=== PATIENT | female | born 1990 | race Caucasian/White ===

== ENCOUNTER 2016-11-12 09:21 | Emergency (ER) | payer MEDICAID ==
[2016-06-03 08:38] VITALS: BMI 28.4
[~2016-11-12 09:21] MED LIST: ATIVAN1 MG PO; AUGMENTIN ES-6125 ML PO; BENTYL10 MG PO; CELEXA20 MG PO; CELEXA40 MG PO; COMPAZINE10 MG PO; GEODON60 MG PO; HYDROCODONE-APA1 TAB PO; INVEGA6 MG/BLIST PO; KEPPRA1000 MG PO; KEPPRA500 MG PO; KLONOPIN1 MG PO; PERCOCET 10/3251 TA1 PO; PHENERGAN DM SYR5 ML PO; PHENERGAN25 M1 PO; PROVENTIL HFA6.7 GM INH; SEROQUEL200 MG PO; SYNTHROID100 MCG PO; SYNTHROID150 MCG PO; SYNTHROID75 MCG PO; TEMAZEPAM30 MG PO; TYLENOL PM1 TAB PO; ZOFRAN8 MG PO
[2016-12-10] MEDS ORDERED: TENEX1 MG PO (13:30)
[2016-12-10] MEDS ORDERED: METOPROLOL TART25 MG PO (13:31)
[2016-12-10] MEDS ORDERED: BUTALB-APAP-CA1 EACH PO (13:31)
== END 2016-11-12 10:39 | disposition home or self-care (01) ==
LOC: D.ER 09:21
DX: G43.909 Migraine, unspecified, not intractable, without status migrainosus (principal); F32.9 Major depressive disorder, single episode, unspecified; J45.909 Unspecified asthma, uncomplicated; E03.9 Hypothyroidism, unspecified; F17.200 Nicotine dependence, unspecified, uncomplicated

== ENCOUNTER → 2016-11-23 14:24 | Outpatient (CLI) | payer MEDICAID ==
[2016-06-03 08:38] VITALS: BMI 28.4
[~2016-11-23 14:24] MED LIST changes: +BUTALB-APAP-CA1 EACH PO; +METOPROLOL TART25 MG PO; +TENEX1 MG PO
== END | disposition home or self-care (01) ==
LOC: D.MRI 14:24
DX: M75.42 Impingement syndrome of left shoulder (principal)

== ENCOUNTER 2016-12-13 09:07 | Day surgery (SDC) | payer MEDICAID ==
[~2016-12-13] VITALS: Ht 157.5 cm; Wt 68.2 kg
[2016-12-13 10:38] VITALS: Ht 157.5 cm; Wt 68.2 kg
[2016-12-13 10:52] LABS: HEMATOCRIT 44.7 % (36.0-48.0); HEMOGLOBIN 15.4 g/dL (12-16); MCHC 34.5 g/dL (31.0-37.0); MCV 92.9 fL (80.0-100.0); MEAN PLATELET VOLUME 10.4 fL (7.4-10.4); RBC 4.81 10x6/uL (4.00-5.40); WBC 6.6 10x3/uL (4.8-10.8)
[2016-12-13 11:21] LABS: HCG URINE NEGATIVE (NEGATIVE)
[2016-12-13] MEDS ORDERED: PERCOCET 10/3251 TA1 PO (12:28)
--- NOTE | 2016-12-13 12:48 | NUR ---
PT HAD ISB LT LEFT SIDE AND REPORTS SOME TINGLING TO LEFT HAND. EDUCATION ABOUT BLOCKS DONE.
--- NOTE | 2016-12-13 14:17 | NUR ---
DISCHARGE INSTRUCTIONS REVIEWED WITH PATIENT. DISCHARGED HOME VIA WHEELCHAIR TO PRIVATE VEHICLE WITH FRIEND
--- NOTE | 2016-12-15 09:22 | OP ---
PATIENT NAME: IAN STYLES MEDICAL RECORD: [id number] :90 LOCATION:D.OPS ADMISSION DATE: SURGEON: ROBERT ANDREW MD DATE OF OPERATION: 12/13/2016 PREOPERATIVE DIAGNOSIS: SLAP lesion of the left shoulder with biceps tendinitis, impingement syndrome and acromioclavicular arthritis. POSTOPERATIVE DIAGNOSES: SLAP lesion of the left shoulder with biceps tendinitis, impingement syndrome and acromioclavicular arthritis. PROCEDURES: 1. Arthroscopic distal clavicle excision -- 1 cm done through separate incision. 2. Arthroscopic subacromial decompression, left shoulder. SURGEON: Robert Andrew MD ANESTHESIA: General. INTRAOPERATIVE COMPLICATIONS: None. SUMMARY OF PATHOLOGIC FINDINGS: While the patient did have biceps tendinitis, no SLAP lesion was present. The biceps tendinitis I thought was more amenable to straightforward decompression than tenodesis. There was no rotator cuff tear. OPERATIVE SUMMARY IN DETAIL: After obtaining the appropriate preoperative orthopedic surgery consent as well as anesthetic consultation, evaluation and clearance, the patient was brought to the operating room and placed on the operating table in supine position. After general laryngeal mask was administered, the patient was placed in a right lateral decubitus position. All pressure points were well padded to include down leg peroneal pad as well as axillary roll. She was held firmly to the operating table using the vacuum pack suction system. Left upper extremity and shoulder were then prepped and draped in a routine sterile fashion. The arm was held in the Arthrex traction boom at 30 degrees of forward flexion, 30 degrees of abduction with 10 pounds of traction laterally. Arthroscopy was established in the glenohumeral joint from posterior portal. Anterior portal was established in the anterior safe interval. Diagnostic arthroscopy revealed the above-mentioned findings. Attention was turned to the subacromial space. While on the subacromial space, excoriation of the coracoacromial ligament was noted as well as some excoriation of the superficial aspect of the supraspinatus tendon. [place] tissue ablation system was utilized to denude the undersurface of the acromion of all soft tissue elements. A 5-0 barrel evgeny was used to perform acromioplasty at the level of acromioclavicular joint. Distal clavicle was excised through a separate arthroscopic anterior portal for 1 cm. Having completed this, the residual of the shoulder bursa was taken down anteriorly, laterally and posteriorly. Having completed this, arthroscopy portals were closed in routine interrupted fashion using 4-0 Prolene. Sterile dressings were applied. The patient was awakened and taken to recovery room in stable condition. All final needle and sponge counts were correct. TRANSINT:[id number] Voice Confirmation ID: [id number] DOCUMENT ID: [id number] OPERATIVE REPORT [id number] IAN STYLES MD, ROBERT MIRELES at 0922 CC: [id number] DICTATION DATE: 12/13/16 1352 EMT: 12/13/16 1454 [facility] 12/13/[address] [address]
== END 2016-12-13 14:17 | disposition home or self-care (01) ==
LOC: D.OPS 09:07 → D.PAN 12:00 → D.OPS 14:17
PROVIDERS: Anesthesiology; Orthopaedic Surgery
DX: S43.432A Superior glenoid labrum lesion of left shoulder, initial encounter (principal); M75.22 Bicipital tendinitis, left shoulder; M75.42 Impingement syndrome of left shoulder; M13.812 Other specified arthritis, left shoulder

== ENCOUNTER 2017-02-17 16:15 | Emergency (ER) | payer MEDICAID ==
[2017-02-17 18:22] LABS: BASOPHILS 0.1 % (0-2); EOSINOPHILS 1.9 % (0-7); HEMATOCRIT 46.7 % (36.0-48.0); IMMATURE GRANULOCYTES 0.2 % (0-5); LYMPHOCYTES 25.7 % (15-50); MCH 31.7 pg (26.0-34.0); MCHC 34.3 g/dL (31.0-37.0); MCV 92.7 fL (80.0-100.0); MEAN PLATELET VOLUME 11.8 fL (7.4-10.4); NEUTROPHILS 68.1 % (40-80); PLATELET COUNT 102 10x3/uL (130-400); RBC 5.04 10x6/uL (4.00-5.40); RDW 12.1 % (11.5-14.5); WBC 8.3 10x3/uL (4.8-10.8)
[2017-02-17 18:40] LABS: ALBUMIN 4.4 g/dL (3.4-5.0); ALKALINE PHOSPHATASE 121 U/L (46-116); ALT (SGPT) 44 U/L (10-68); CALC OSMOLALITY 279 mosm/kg (275-300); CARBON DIOXIDE 24.9 mmol/L (21.0-32.0); CHLORIDE - SERUM 102 mmol/L (98-107); CREATININE - SERUM 0.7 mg/dL (0.6-1.3); GLUCOSE 121 mg/dL (74-106); POTASSIUM - SERUM 3.6 mmol/L (3.5-5.1); PROTEIN - SERUM 7.2 g/dL (6.4-8.2); SODIUM 142 mmol/L (136-145); TROPONIN-I < 0.017 ng/mL (0.000-0.060); UREA NITROGEN 1 mg/dL (7-18); eGFR NON AFRICAN AMERICAN > 90 mL/min (90-120)
[2017-02-17 18:51] LABS: CKMB 0.5 U/L (0.0-3.6); CREATINE KINASE 77 UL (21-215)
[2017-02-17 20:33] LABS: APPEARANCE HAZY (CLEAR); BILIRUBIN NEGATIVE (NEGATIVE); COLOR STRAW (YELLOW); GLUCOSE NEGATIVE (NEGATIVE); KETONE NEGATIVE (NEGATIVE); LEUKOCYTE ESTERASE NEGATIVE (NEGATIVE); NITRITE NEGATIVE (NEGATIVE); PROTEIN TRACE mg/dL (NEGATIVE); SPECIFIC GRAVITY 1.005 (1.005-1.020); UROBILINOGEN NORMAL (NORMAL)
[2017-02-17 20:34] LABS: BACTERIA MODERATE /hpf (NONE SEEN); EPITHELIAL CELLS 0-5 /hpf (0-5); RED CELLS - URINE 0-5 /hpf (0-5); WHITE CELLS - URINE 0-5 /hpf (0-5)
== END 2017-02-17 21:05 | disposition home or self-care (01) ==
LOC: D.ER 16:15
PROVIDERS: Emergency Medicine; Nurse Practitioner Family
DX: R07.89 Other chest pain (principal); J06.9 Acute upper respiratory infection, unspecified; F32.9 Major depressive disorder, single episode, unspecified; J45.909 Unspecified asthma, uncomplicated; E03.9 Hypothyroidism, unspecified; F17.200 Nicotine dependence, unspecified, uncomplicated

== ENCOUNTER 2017-05-27 14:50 | Emergency (ER) | payer MEDICAID ==
[2016-12-13 10:38] VITALS: BMI 27.5
== END 2017-05-27 17:50 | disposition home or self-care (01) ==
LOC: D.ER 14:50
DX: S80.02XA Contusion of left knee, initial encounter (principal); X58.XXXA Exposure to other specified factors, initial encounter; Y93.89 Activity, other specified; Y92.89 Other specified places as the place of occurrence of the external cause; S83.92XA Sprain of unspecified site of left knee, initial encounter; F32.9 Major depressive disorder, single episode, unspecified; J45.909 Unspecified asthma, uncomplicated; E03.9 Hypothyroidism, unspecified; F17.200 Nicotine dependence, unspecified, uncomplicated; M79.662 Pain in left lower leg

== ENCOUNTER 2017-07-02 21:31 | Emergency (ER) | payer MEDICAID ==
[2016-12-13 10:38] VITALS: BMI 27.5
== END 2017-07-02 23:30 | disposition home or self-care (01) ==
LOC: D.ER 21:31
DX: S43.102A Unspecified dislocation of left acromioclavicular joint, initial encounter (principal); W22.8XXA Striking against or struck by other objects, initial encounter; Y93.89 Activity, other specified; Y92.830 Public park as the place of occurrence of the external cause; F17.200 Nicotine dependence, unspecified, uncomplicated

== ENCOUNTER → 2017-07-06 08:27 | Outpatient (CLI) | payer MEDICAID ==
[2016-12-13 10:38] VITALS: BMI 27.5
== END | disposition home or self-care (01) ==
LOC: D.MRI 06-28 10:30
DX: M25.562 Pain in left knee (principal)

== ENCOUNTER 2019-08-30 12:14 | Emergency (ER) | payer MEDICAID ==
[~2019-08-30] VITALS: Ht 157.5 cm; Wt 77.3 kg
[2019-08-30 12:27] VITALS: Ht 157.5 cm; Wt 77.3 kg
[2019-08-30] MEDS ORDERED: ABILIFY MAINTE400 MG IM (12:31)
[2019-08-30] MEDS ORDERED: IMITREX100 MG PO (12:31)
[2019-08-30] MEDS ORDERED: ELAVIL25 MG PO (12:32)
[2019-08-30] MEDS ORDERED: AMBIEN10 MG PO (12:32)
[2019-08-30] MEDS ORDERED: ZOFRAN4 MG PO (12:32)
[2019-08-30] MEDS ORDERED: NEURONTIN600 MG PO (12:32)
[2019-08-30] MEDS ORDERED: HYDROCODON-ACE1 EA10 PO (12:33)
[2019-08-30] MEDS ORDERED: LINZESS72 MCG PO (12:33)
[2019-08-30] MEDS ORDERED: CYCLOBENZAPRINE10 MG PO (12:34)
--- NOTE | 2019-08-30 14:48 | NUR ---
DR. CARBAJAL NOTIFIED AND REVIEWED PT'S BEHAVIOR AND ASSESSMENT RESULTS AT THIS TIME. PT IS A LOW RISK PER DR. CARBAJAL. DR. CARBAJAL STATED TO GIVE RESOURCES TO PT AT TIME OF DISCHARGE. NO FURTHER ORDERS AT THIS TIME. RESOURCES REVIEWED WITH PT AND SHE VERBALIZED UNDERSTANDING.
[2019-08-30] MEDS ORDERED: HYDROCODON-ACE1 EAC7 PO (16:02)
[2019-08-30 16:17] VITALS: BP 111/72
[2019-09-25] MEDS ORDERED: TYLENOL W/CODEI1 TAB PO (14:37)
[2019-09-25] MEDS ORDERED: HYDROCODON-ACE1 EA10 PO (18:43)
[2019-09-25] MEDS ORDERED: PHENERGAN25 M1 PO (18:43)
== END 2019-08-30 16:14 | disposition home or self-care (01) ==
LOC: D.ER 12:14
DX: S49.92XA Unspecified injury of left shoulder and upper arm, initial encounter (principal); X58.XXXA Exposure to other specified factors, initial encounter

== ENCOUNTER → 2019-09-10 13:23 | Outpatient (CLI) | payer MEDICAID ==
[2019-08-30 12:27] VITALS: BMI 31.1
[~2019-09-10 13:23] MED LIST changes: +ABILIFY MAINTE400 MG IM; +AMBIEN10 MG PO; +CYCLOBENZAPRINE10 MG PO; +ELAVIL25 MG PO; +HYDROCODON-ACE1 EA10 PO; +HYDROCODON-ACE1 EAC7 PO; +IMITREX100 MG PO; +LINZESS72 MCG PO; +NEURONTIN600 MG PO; +TYLENOL W/CODEI1 TAB PO; +ZOFRAN4 MG PO
--- NOTE | 2019-09-10 14:14 | NUR ---
TIME OUT PERFORMED BY JENNY BUENO, RTR & DR. HUSSEIN @ 1400. PATIENT, , & PROCEDURE VERIFIED
== END | disposition home or self-care (01) ==
LOC: D.RAD 13:23 → D.CT 15:00
PROVIDERS: ATTEND Orthopaedic Surgery
DX: S43.432A Superior glenoid labrum lesion of left shoulder, initial encounter (principal)

== ENCOUNTER → 2019-09-25 | Emergency (ER) | payer MEDICAID ==
[~2019-09-25] VITALS: Ht 157.5 cm; Wt 79.1 kg
[2019-09-25 14:34] VITALS: BP 129/84; Ht 157.5 cm; Wt 79.1 kg
== END | disposition home or self-care (01) ==
LOC: D.ER 14:21
DX: S46.212A Strain of muscle, fascia and tendon of other parts of biceps, left arm, initial encounter (principal); R11.2 Nausea with vomiting, unspecified; E07.9 Disorder of thyroid, unspecified

== ENCOUNTER 2019-10-11 07:25 | Day surgery (SDC) | payer MEDICAID ==
[2019-10-10 15:53] LABS: HEMATOCRIT 48.6 % (36.0-48.0); HEMOGLOBIN 16.8 g/dL (12-16); MCH 33.3 pg (26.0-34.0); MCHC 34.6 g/dL (31.0-37.0); MCV 96.4 fL (80.0-100.0); MEAN PLATELET VOLUME 9.5 fL (7.4-10.4); RBC 5.04 10x6/uL (4.00-5.40); RDW 13.1 % (11.5-14.5); WBC 9.7 10x3/uL (4.8-10.8)
[~2019-10-11] VITALS: Ht 157.5 cm; Wt 78.9 kg
[~2019-10-11 07:25] MED LIST changes: +HYDROXYZINE HCL50 MG PO; +MELATONIN10 M1 PO
[2019-10-11 08:40] VITALS: BP 127/91; Ht 157.5 cm; Wt 78.9 kg
--- NOTE | 2019-10-11 08:56 | NUR ---
DR. SYKES NOTIFIED AND REVIEWED PT'S BEHAVIOR AND ASSESSMENT RESULTS. PT IS A LOW RISK PER DR. CARBAJAL. DR. CARBAJAL STATED TO GIVE RESOURCES TO PT AT TIME OF DISCHARGE. NO FURTHER ORDERS AT THIS TIME. RESOURCRES REVIEWED WITH PT AND SHE VERBALIZIED UNDERSTANDING.
[2019-10-11 09:04] LABS: HCG URINE NEGATIVE (NEGATIVE)
[2019-10-11] MEDS ORDERED: HYDROCODON-ACE1 EA10 PO (13:06)
--- NOTE | 2019-10-12 06:22 | OP ---
PATIENT NAME: IAN STYLES MEDICAL RECORD: [id number] :90 LOCATION:[facility] ADMISSION DATE: SURGEON: ROBERT ANDREW MD DATE OF OPERATION: 10/11/2019 PREOPERATIVE DIAGNOSES: 1. Severe biceps tendinitis, left shoulder. 2. Recurrent impingement syndrome, left shoulder. 3. Acromioclavicular arthritis, left shoulder. POSTOPERATIVE DIAGNOSES: 1. Severe biceps tendinitis, left shoulder. 2. Recurrent impingement syndrome, left shoulder. 3. Acromioclavicular arthritis, left shoulder. PROCEDURES: 1. Arthroscopic biceps tenotomy, left shoulder. 2. Arthroscopic distal clavicle excision done through separate incision -- 1 cm. 3. Arthroscopic subacromial decompression with acromioplasty and bursectomy. SURGEON: Robert Andrew MD ANESTHESIA: General. INTRAOPERATIVE COMPLICATIONS: None. SUMMARY OF PATHOLOGIC FINDINGS: Primarily, the patient not only had a recurrence of mild downward sloping acromion, but she also had a residual acromioclavicular arthritis and lastly most importantly, she had severe biceps tendinitis, which obviated the need for tenotomy rather than tenodesis. OPERATIVE SUMMARY IN DETAIL: After obtaining the appropriate preoperative orthopedic surgery consent as well as anesthetic consultation , evaluation and clearance, the patient was brought to the operating room and placed on the operating table in a supine position. After adequate general laryngeal mask airway was administered, the patient was placed in the right lateral decubitus position. All pressure points were well padded to include down leg peroneal pad as well as axillary roll. The patient was held firmly to the operating table using the vacuum pack suction system. Right upper extremity and shoulder were then prepped and draped in routine sterile fashion. The arm was held in the Arthrex traction boom at 30 degrees of forward flexion, 30 degrees of abduction, 10 pounds of traction laterally. Arthroscopy was established in the glenohumeral joint from the posterior portal. Anterior portal was established in the anterior safe interval. Diagnostic arthroscopy revealed the above findings. [place] tissue ablation system was utilized to release the biceps tendon from the bicipital labral junction. Attention was then turned to the subacromial space with the accessory lateral portal. The [place] tissue ablation system was used to denude the undersurface of the acromion of all soft tissue elements and release the coracoacromial ligament. A 5-0 barrel bur was used to perform acromioplasty at the level of acromioclavicular joint and through a separate anterior portal under direct arthroscopic visualization. A bur was utilized to completely take down the acromioclavicular joint for 1 cm. Further bursitis was taken down anteriorly, posteriorly, laterally, and superiorly. Having completed this, arthroscopy portals were closed in routine interrupted OPERATIVE REPORT [id number] IAN STYLES fashion using 4-0 Prolene. Sterile dressings were applied. The patient was awakened and taken to the recovery room in stable condition. All final needle and sponge counts were correct. TRANSINT:[id number] Voice Confirmation ID: [id number] DOCUMENT ID: [id number] KAMRAN ROBERTSON, ROBERT MIRELES at 0622 CC: [id number] DICTATION DATE: 10/11/19 1311 DRIVER LICENSE TECHNICIAN: 10/11/19 1559 [facility] 10/11/19 [id number] [place] [address]
== END 2019-10-11 14:55 | disposition home or self-care (01) ==
LOC: D.OPS 07:25 → D.PAN 10:15 → D.OPS 10:15 → D.PAN 11:25 → D.OPS 11:25 → D.PAN 12:00 → D.OPS 13:30 → D.PAN 13:30 → D.OPS 14:55
PROVIDERS: Anesthesiology; ATTEND Orthopaedic Surgery
DX: M75.22 Bicipital tendinitis, left shoulder (principal); M25.812 Other specified joint disorders, left shoulder; M13.812 Other specified arthritis, left shoulder

== ENCOUNTER 2020-02-05 12:28 | Emergency (ER) | payer MEDICAID ==
[~2020-02-05] VITALS: Ht 157.5 cm; Wt 72.7 kg
[2020-02-05 12:36] VITALS: Ht 157.5 cm; Wt 72.7 kg
[2020-02-05 13:21] LABS: BASOPHILS 0.3 % (0-2); EOSINOPHILS 3.1 % (0-7); HEMATOCRIT 44.7 % (36.0-48.0); HEMOGLOBIN 14.2 g/dL (12-16); IMMATURE GRANULOCYTES 0.3 % (0-5); LYMPHOCYTES 27.7 % (15-50); MCH 31.2 pg (26.0-34.0); MCHC 31.8 g/dL (31.0-37.0); MCV 98.2 fL (80.0-100.0); MEAN PLATELET VOLUME 9.9 fL (7.4-10.4); MONOCYTES 5.2 % (2-11); NEUTROPHILS 63.4 % (40-80); PLATELET COUNT 283 10x3/uL (130-400); RBC 4.55 10x6/uL (4.00-5.40); RDW 13.1 % (11.5-14.5); WBC 7.7 10x3/uL (4.8-10.8)
[2020-02-05 13:27] LABS: APTT 30.7 SECONDS (22.8-39.4); INR 0.99 (0.85-1.17); PROTIME 13.1 SECONDS (11.6-15.0)
[2020-02-05 13:29] LABS: CALC OSMOLALITY 269 mosm/kg (275-300); CALCIUM 9.2 mg/dL (8.5-10.1); CARBON DIOXIDE 27.8 mmol/L (21.0-32.0); CHLORIDE - SERUM 102 mmol/L (98-107); CREATININE - SERUM 0.9 mg/dL (0.6-1.3); GLUCOSE 87 mg/dL (74-106); POTASSIUM - SERUM 3.9 mmol/L (3.5-5.1); SODIUM 137 mmol/L (136-145); UREA NITROGEN 5 mg/dL (7-18); eGFR NON AFRICAN AMERICAN 78 mL/min (90-120)
[2020-02-05 13:46] LABS: ALBUMIN 4.1 g/dL (3.4-5.0); ALKALINE PHOSPHATASE 113 U/L (30-120); ALT (SGPT) 26 U/L (10-68); BILIRUBIN - TOTAL 0.38 mg/dL (0.2-1.3); CKMB 0.2 U/L (0.0-3.6); CREATINE KINASE 185 UL (21-215); PROTEIN - SERUM 7.8 g/dL (6.4-8.2); THYROID STIMULATING HORMONE 5.45 uIU/mL (0.36-3.74); TROPONIN-I < 0.017 ng/mL (0.000-0.060)
[2020-02-05 15:21] VITALS: BP 109/70
== END 2020-02-05 14:50 | disposition home or self-care (01) ==
LOC: D.ER 12:28
PROVIDERS: Family Medicine
DX: E03.9 Hypothyroidism, unspecified (principal); J45.909 Unspecified asthma, uncomplicated; Z72.0 Tobacco use; R51 Headache; R42 Dizziness and giddiness

== ENCOUNTER 2020-03-12 19:09 | Emergency (ER) | payer MEDICAID ==
[~2020-03-12] VITALS: Ht 157.5 cm; Wt 79.5 kg
[2020-03-12 19:22] VITALS: Ht 157.5 cm; Wt 79.5 kg
[2020-03-12] MEDS ORDERED: TALWIN NX1 TAB PO (20:08)
[2020-03-12] MEDS ORDERED: STERAPRED DS 1010 MG PO (20:08)
[2020-03-12] MEDS ORDERED: BACLOFEN20 M1 PO (20:23)
[2020-03-12 20:56] VITALS: BP 122/84
== END 2020-03-12 20:56 | disposition home or self-care (01) ==
LOC: D.ER 19:09
DX: M25.512 Pain in left shoulder (principal); M25.50 Pain in unspecified joint; M79.10 Myalgia, unspecified site; E07.9 Disorder of thyroid, unspecified; J45.909 Unspecified asthma, uncomplicated; Z72.0 Tobacco use

== ENCOUNTER → 2020-04-04 10:02 | Outpatient (CLI) | payer MEDICAID ==
[2020-03-12 19:22] VITALS: BMI 32.1
[~2020-04-04 10:02] MED LIST changes: +BACLOFEN20 M1 PO; +STERAPRED DS 1010 MG PO; +TALWIN NX1 TAB PO
== END | disposition home or self-care (01) ==
LOC: D.CT 10:00 → D.RAD 10:02
PROVIDERS: ATTEND Orthopaedic Surgery
DX: M67.812 Other specified disorders of synovium, left shoulder (principal)

== ENCOUNTER 2020-04-30 09:59 | Emergency (ER) | payer MEDICAID ==
[~2020-04-30] VITALS: Ht 157.5 cm; Wt 79.5 kg
[2020-04-30 10:07] VITALS: Ht 157.5 cm; Wt 79.5 kg
[2020-04-30] MEDS ORDERED: TOVIAZ4 MG PO (10:11)
[2020-04-30] MEDS ORDERED: TENORMIN25 MG PO (10:12)
[2020-04-30] MEDS ORDERED: TOPAMAX50 MG PO (10:12)
[2020-04-30] MEDS ORDERED: KLONOPIN0.5 MG PO (10:13)
[2020-04-30] MEDS ORDERED: CYCLOBENZAPRINE10 MG PO (10:14)
[2020-04-30] MEDS ORDERED: PHENERGAN GEL (10:15)
[2020-04-30] MEDS ORDERED: CHRONULAC30 ML PO (10:15)
[2020-04-30 10:29] LABS: BASOPHILS 0.1 % (0-2); EOSINOPHILS 2.1 % (0-7); HEMATOCRIT 45.6 % (36.0-48.0); HEMOGLOBIN 15.4 g/dL (12-16); IMMATURE GRANULOCYTES 0.2 % (0-5); LYMPHOCYTES 27.3 % (15-50); MCH 32.5 pg (26.0-34.0); MCHC 33.8 g/dL (31.0-37.0); MCV 96.2 fL (80.0-100.0); MEAN PLATELET VOLUME 10.2 fL (7.4-10.4); MONOCYTES 3.7 % (2-11); NEUTROPHILS 66.6 % (40-80); PLATELET COUNT 240 10x3/uL (130-400); RBC 4.74 10x6/uL (4.00-5.40); RDW 12.5 % (11.5-14.5); WBC 9.3 10x3/uL (4.8-10.8)
[2020-04-30 10:39] LABS: CALC OSMOLALITY 270 mosm/kg (275-300); CALCIUM 9.5 mg/dL (8.5-10.1); CARBON DIOXIDE 26.9 mmol/L (21.0-32.0); CHLORIDE - SERUM 100 mmol/L (98-107); CREATININE - SERUM 0.9 mg/dL (0.6-1.3); GLUCOSE 95 mg/dL (74-106); POTASSIUM - SERUM 3.9 mmol/L (3.5-5.1); SODIUM 136 mmol/L (136-145); UREA NITROGEN 9 mg/dL (7-18); eGFR NON AFRICAN AMERICAN 78 mL/min (90-120)
[2020-04-30 10:47] LABS: ALBUMIN 4.6 g/dL (3.4-5.0); ALKALINE PHOSPHATASE 90 U/L (30-120); ALT (SGPT) 28 U/L (10-68); AMYLASE - SERUM 43 U/L (25-115); BILIRUBIN - TOTAL 0.48 mg/dL (0.2-1.3); LIPASE 70 U/L (73-393); PROTEIN - SERUM 8.3 g/dL (6.4-8.2)
[2020-04-30 10:48] LABS: TROPONIN-I < 0.017 ng/mL (0.000-0.060)
[2020-04-30 10:59] LABS: BACTERIA MODERATE /hpf (NEGATIVE); BILIRUBIN NEGATIVE (NEGATIVE); EPITHELIAL CELLS 0-5 /hpf (0-5); GLUCOSE NEGATIVE (NEGATIVE); KETONE NEGATIVE (NEGATIVE); NITRITE NEGATIVE (NEGATIVE); UROBILINOGEN NORMAL (NORMAL); WHITE CELLS - URINE OCC /hpf (NEGATIVE)
[2020-04-30 11:00] LABS: AMORPHOUS SEDIMENT <1+ /lpf (NONE SEEN); RED CELLS - URINE OCC /hpf (0-5)
[2020-04-30] MEDS ORDERED: LEVAQUIN750 MG PO (13:21)
[2020-04-30] MEDS ORDERED: TALWIN NX1 TAB PO (13:22)
[2020-04-30 13:25] VITALS: BP 102/69
== END 2020-04-30 13:38 | disposition home or self-care (01) ==
LOC: D.ER 09:59
PROVIDERS: Family Medicine
DX: K52.9 Noninfective gastroenteritis and colitis, unspecified (principal); R10.9 Unspecified abdominal pain; E07.9 Disorder of thyroid, unspecified; J45.909 Unspecified asthma, uncomplicated; Z72.0 Tobacco use

== ENCOUNTER → 2020-05-05 13:32 | Outpatient (CLI) | payer MEDICAID ==
[2020-04-30 10:07] VITALS: BMI 32.1
[~2020-05-05 13:32] MED LIST changes: +CHRONULAC30 ML PO; +KLONOPIN0.5 MG PO; +LEVAQUIN750 MG PO; +PHENERGAN GEL; +TENORMIN25 MG PO; +TOPAMAX50 MG PO; +TOVIAZ4 MG PO
== END | disposition home or self-care (01) ==
LOC: D.CT 13:32
PROVIDERS: ATTEND Clinical Nurse Specialist Family Health
DX: M54.12 Radiculopathy, cervical region (principal)

== ENCOUNTER 2020-05-09 11:59 | Emergency (ER) | payer MEDICAID ==
[2020-05-09 12:10] VITALS: BP 118/81; Ht 157.5 cm
[2020-05-09 13:06] LABS: UDS - AMPHET NEGATIVE QUAL (NEGATIVE); UDS - BARB NEGATIVE QUAL (NEGATIVE); UDS - BENZO NEGATIVE QUAL (NEGATIVE); UDS - COCAINE NEGATIVE QUAL (NEGATIVE); UDS - OPIATE NEGATIVE QUAL (NEGATIVE); UDS - PCP NEGATIVE QUAL (NEGATIVE); UDS - THC NEGATIVE QUAL (NEGATIVE)
[2020-05-09 13:18] LABS: BILIRUBIN NEGATIVE (NEGATIVE); EPITHELIAL CELLS OCC /hpf (0-5); GLUCOSE NEGATIVE (NEGATIVE); KETONE NEGATIVE (NEGATIVE); NITRITE NEGATIVE (NEGATIVE); RED CELLS - URINE RARE /hpf (0-5); SPECIFIC GRAVITY 1.015 (1.005-1.020); UROBILINOGEN NORMAL (NORMAL)
[2020-05-09 13:19] LABS: BACTERIA MODERATE /hpf (NEGATIVE); WHITE CELLS - URINE 0-5 /hpf (NEGATIVE)
[2020-05-09 13:23] LABS: CALC OSMOLALITY 261 mosm/kg (275-300); CALCIUM 9.2 mg/dL (8.5-10.1); CARBON DIOXIDE 26.4 mmol/L (21.0-32.0); CHLORIDE - SERUM 97 mmol/L (98-107); CREATININE - SERUM 0.8 mg/dL (0.6-1.3); GLUCOSE 78 mg/dL (74-106); POTASSIUM - SERUM 3.5 mmol/L (3.5-5.1); SODIUM 132 mmol/L (136-145); UREA NITROGEN 8 mg/dL (7-18); eGFR NON AFRICAN AMERICAN 89 mL/min (90-120)
[2020-05-09 13:28] LABS: APTT 31.1 SECONDS (22.8-39.4); INR 0.98 (0.85-1.17); PROTIME 12.9 SECONDS (11.6-15.0)
[2020-05-09 13:29] LABS: ALBUMIN 4.4 g/dL (3.4-5.0); ALKALINE PHOSPHATASE 90 U/L (30-120); ALT (SGPT) 26 U/L (10-68); BILIRUBIN - TOTAL 0.46 mg/dL (0.2-1.3)
[2020-05-09 13:35] LABS: BASOPHILS 0.1 % (0-2); EOSINOPHILS 1.4 % (0-7); HEMATOCRIT 44.8 % (36.0-48.0); HEMOGLOBIN 15.3 g/dL (12-16); IMMATURE GRANULOCYTES 0.3 % (0-5); LYMPHOCYTES 26.5 % (15-50); MCH 32.1 pg (26.0-34.0); MCHC 34.2 g/dL (31.0-37.0); MCV 93.9 fL (80.0-100.0); MEAN PLATELET VOLUME 9.9 fL (7.4-10.4); MONOCYTES 5.7 % (2-11); PLATELET COUNT 263 10x3/uL (130-400); RBC 4.77 10x6/uL (4.00-5.40); RDW 12.2 % (11.5-14.5); WBC 10.3 10x3/uL (4.8-10.8)
== END 2020-05-09 14:35 | disposition home or self-care (01) ==
LOC: D.ER 11:59
PROVIDERS: Family Medicine
DX: Z71.1 Person with feared health complaint in whom no diagnosis is made (principal); R53.1 Weakness; R47.81 Slurred speech; J45.909 Unspecified asthma, uncomplicated; E07.9 Disorder of thyroid, unspecified

== ENCOUNTER → 2020-06-09 08:15 | Outpatient (CLI) | payer MEDICAID ==
[2020-06-09 08:58] LABS: ALBUMIN 4.1 g/dL (3.4-5.0); ANION GAP 9.4 mmol/L (8-16); BILIRUBIN - TOTAL 0.3 mg/dL (0.2-1.3); CALCIUM 9.8 mg/dL (8.5-10.1); CARBON DIOXIDE 28.8 mmol/L (21.0-32.0); POTASSIUM - SERUM 4.2 mmol/L (3.5-5.1)
== END | disposition home or self-care (01) ==
LOC: D.CT 08:15
PROVIDERS: ATTEND Psychiatry & Neurology Neurology
DX: R41.9 Unspecified symptoms and signs involving cognitive functions and awareness (principal)

== ENCOUNTER 2020-06-14 16:00 | Emergency (ER) | payer MEDICAID ==
[2020-06-14 16:10] VITALS: Ht 157.5 cm
[2020-06-14] MEDS ORDERED: CYCLOBENZAPRINE10 MG PO (16:52)
[2020-06-14 17:18] VITALS: BP 106/72
== END 2020-06-14 17:18 | disposition home or self-care (01) ==
LOC: D.ER 16:00
DX: R51 Headache (principal); M54.6 Pain in thoracic spine; W19.XXXA Unspecified fall, initial encounter; Y93.9 Activity, unspecified; Y92.9 Unspecified place or not applicable; E07.9 Disorder of thyroid, unspecified; J45.909 Unspecified asthma, uncomplicated; M54.2 Cervicalgia

== ENCOUNTER 2020-07-04 09:49 | Emergency (ER) | payer MEDICAID ==
[~2020-07-04] VITALS: Ht 157.5 cm; Wt 79.5 kg
[2020-07-04 09:52] VITALS: BP 123/63; Ht 157.5 cm; Wt 79.5 kg
[2020-07-04] MEDS ORDERED: TYLENOL #4 W/CO1 TAB PO (11:37)
[2020-07-04] MEDS ORDERED: NAPROSYN500 MG PO (11:37)
== END 2020-07-04 12:22 | disposition home or self-care (01) ==
LOC: D.ER 09:49
DX: S93.402A Sprain of unspecified ligament of left ankle, initial encounter (principal); E07.9 Disorder of thyroid, unspecified; J45.909 Unspecified asthma, uncomplicated; Z72.0 Tobacco use; W01.0XXA Fall on same level from slipping, tripping and stumbling without subsequent striking against object, initial encounter; Y93.9 Activity, unspecified; Y92.9 Unspecified place or not applicable

== ENCOUNTER 2020-12-19 05:10 | Day surgery (SDC) | payer MEDICAID ==
[~2020-12-19] VITALS: Ht 157.5 cm; Wt 85.7 kg
--- NOTE | ~2020-12-19 | OP ---
PATIENT NAME: IAN STYLES MEDICAL RECORD: [id number] :90 LOCATION:D.OPS ADMISSION DATE: SURGEON: MIGUELANGEL WORTHINGTON MD DATE OF OPERATION: 12/19/2020 PREOPERATIVE DIAGNOSES: 1. Gastroparesis. 2. Painful jejunostomy tube. POSTOPERATIVE DIAGNOSES: 1. Gastroparesis. 2. Painful jejunostomy tube. PROCEDURE: Exchange of right upper quadrant jejunostomy tube with 18-Serbian Castillo gastrojejunostomy tube. SURGEON: Miguelangel Worthington MD DESCRIPTION OF PROCEDURE: Fluoro was used to note the location of the indwelling J-tube. A 0.035 Glidewire was then inserted through the indwelling J-tube and this J-tube was removed leaving the wire in place. Over this wire, we placed a new 18-Serbian Castillo gastrojejunostomy tube through the right upper quadrant of the abdominal wall into the jejunum. This easily passed over the wire and the wire was eventually removed. The catheter flushed easily with saline and there was good return of enteric contents. We capped off the enteric and draining ports and inflated the balloon with 5 cc of saline. The patient tolerated the procedure well. COMPLICATIONS: None. CONDITION: Stable. ANESTHESIA: TIVA. BLOOD LOSS: Minimal. TRANSINT:[id number] Voice Confirmation ID: [id number] DOCUMENT ID: [id number] MIGUELANGEL WORTHINGTON MD CC: [id number] DICTATION DATE: 12/19/20 0851 EMPLOYMENT SERVICES DIRECTOR: 12/19/20 1105 [facility] 12/19/[address] [address]
[~2020-12-19 05:10] MED LIST changes: +ALBUTEROL SULF8.5 GM INH; +ALBUTEROL0.63 MG/3 INH; +FLOVENT HFA 410.6 GM INH; +HYDROCODONE-AC1 EAC2 PO; +METHOCARBAMOL500 MG; +NAPROSYN500 MG PO; +PERCOCET 5-3251 TAB PO; +PROAIR HFA8.5 G1 INH; +ROXICODONE15 MG PO; +SEROQUEL100 MG PO; +SYNTHROID125 MCG PO; +TEGRETOL200 MG PO; +TOPAMAX100 MG PO; +TOVIAZ8 MG PO; +TRAZODONE HCL100 MG PO; +TYLENOL #4 W/CO1 TAB PO; +[UNRECOGNIZED DRUG - OTHER]
[2020-12-19 06:06] LABS: CALC OSMOLALITY 274 mosm/kg (275-300); CALCIUM 8.8 mg/dL (8.5-10.1); CARBON DIOXIDE 25.5 mmol/L (21.0-32.0); CHLORIDE - SERUM 103 mmol/L (98-107); CREATININE - SERUM 0.8 mg/dL (0.6-1.3); GLUCOSE 88 mg/dL (74-106); POTASSIUM - SERUM 3.5 mmol/L (3.5-5.1); SODIUM 139 mmol/L (136-145); UREA NITROGEN 6 mg/dL (7-18); eGFR NON AFRICAN AMERICAN 89 mL/min (90-120)
[2020-12-19 06:15] LABS: BASOPHILS 0.1 % (0-2); EOSINOPHILS 5.7 % (0-7); HEMATOCRIT 41.2 % (36.0-48.0); HEMOGLOBIN 13.3 g/dL (12-16); IMMATURE GRANULOCYTES 0.3 % (0-5); LYMPHOCYTE ABS# 1.71 10x3/uL (1.18-3.74); LYMPHOCYTES 24.3 % (15-50); MCH 31.2 pg (26.0-34.0); MCHC 32.3 g/dL (31.0-37.0); MCV 96.7 fL (80.0-100.0); MEAN PLATELET VOLUME 9.8 fL (7.4-10.4); MONOCYTES 4.7 % (2-11); NEUTROPHIL ABS# 4.57 10x3/uL (1.56-6.13); NEUTROPHILS 64.9 % (40-80); PLATELET COUNT 255 10x3/uL (130-400); RBC 4.26 10x6/uL (4.00-5.40); RDW 12.5 % (11.5-14.5)
[2020-12-19 06:18] VITALS: BP 97/69; Ht 157.5 cm; Wt 85.7 kg
[2020-12-19 06:23] LABS: HCG SERUM NEGATIVE (NEGATIVE)
[2020-12-19] MEDS ORDERED: FLOMAX0.4 MG PO (06:26)
--- NOTE | 2020-12-19 08:41 | NUR ---
DR. WORTHINGTON AT BEDSIDE INSTRUCTING PT AND CAREGIVER ON USE OF J TUBE AND CORRESPONDING PORTS
--- NOTE | 2020-12-19 08:54 | NUR ---
IV D/C'D WITH CANNULA INTACT, PRESSURE HELD AND DRSG PLACED. DISCHARGE INSTRUCTIONS GIVEN
== END 2020-12-19 08:58 | disposition home or self-care (01) ==
LOC: D.OPS 05:10
PROVIDERS: Anesthesiology; ATTEND Surgery
DX: K31.84 Gastroparesis (principal); K43.2 Incisional hernia without obstruction or gangrene; R60.0 Localized edema; T85.848A Pain due to other internal prosthetic devices, implants and grafts, initial encounter

== ENCOUNTER 2020-12-21 15:04 | Emergency (ER) | payer MEDICAID ==
[~2020-12-21] VITALS: Ht 157.5 cm; Wt 81.8 kg
[~2020-12-21 15:04] MED LIST changes: +FLOMAX0.4 MG PO
[2020-12-21 15:12] VITALS: BP 124/72; Ht 157.5 cm; Wt 81.8 kg
[2020-12-21] MEDS ORDERED: HYDROCODON-ACE1 EAC7 PO (15:17)
== END 2020-12-21 15:55 | disposition home or self-care (01) ==
LOC: D.ER 15:04
DX: T81.30XA Disruption of wound, unspecified, initial encounter (principal); J45.909 Unspecified asthma, uncomplicated; Z72.0 Tobacco use

== ENCOUNTER 2021-01-19 14:43 | Emergency (ER) | payer MEDICAID ==
[~2021-01-19] VITALS: Ht 157.5 cm; Wt 81.8 kg
[2021-01-19 15:06] VITALS: Ht 157.5 cm; Wt 81.8 kg
[2021-01-19] MEDS ORDERED: HYDROXYZINE HCL50 MG PO (15:09)
[2021-01-19] MEDS ORDERED: STERAPRED 5MG 65 M1 PO (18:34)
[2021-01-19] MEDS ORDERED: ZANAFLEX4 MG PO (18:34)
[2021-01-19 19:17] VITALS: BP 114/86
== END 2021-01-19 20:45 | disposition home or self-care (01) ==
LOC: D.ER 14:43
DX: M25.552 Pain in left hip (principal); J45.909 Unspecified asthma, uncomplicated; Z72.0 Tobacco use

== ENCOUNTER 2021-01-29 05:42 | Day surgery (SDC) | payer MEDICAID ==
[~2021-01-29] VITALS: Ht 157.5 cm; Wt 83.6 kg
--- NOTE | ~2021-01-29 | OP ---
PATIENT NAME: IAN STYLES MEDICAL RECORD: [id number] :90 LOCATION:D.OPS ADMISSION DATE: SURGEON: MIGUELANGEL WORTHINGTON MD DATE OF OPERATION: 01/29/2021 PREOPERATIVE DIAGNOSES: 1. Gastroparesis. 2. Bipolar disorder. 3. Schizophrenia. POSTOPERATIVE DIAGNOSES: 1. Gastroparesis. 2. Bipolar disorder. 3. Schizophrenia. PROCEDURE: PEG tube placement. SURGEON: Miguelangel Worthington MD DESCRIPTION OF PROCEDURE: An Olympus endoscope was advanced through the patient's mouth and esophagus. We were able to insufflate the stomach. The patient had a previous gastrostomy tube and we could see some scarring on the lumen of the stomach. The abdomen was then prepped and draped and a skin incision was made through a small scarred opening in the left upper quadrant. A skin incision was made with an 11-blade and then we passed an Angiocath needle through the abdominal wall into the lumen of the stomach. A wire was passed through this needle and we were able to grasp this with an Endo snare. The wire and snare were pulled through the mouth esophagus. The PEG tube was affixed to the wire and this was pulled through the mouth and esophagus and through the abdominal wall. We pulled it until it rested about 5 cm at the skin. We went back down with the endoscope and could see the PEG tube was in good position with no signs of any bleeding. At this point, the insufflation and the scope were removed. COMPLICATIONS: None. CONDITION: Stable. ANESTHESIA: TIVA. BLOOD LOSS: Minimal. TRANSINT:[id number] Voice Confirmation ID: [id number] DOCUMENT ID: [id number] MIGUELANGEL WORTHINGTON MD CC: [id number] DICTATION DATE: 01/29/21804 MICROBIOLOGY LAB ANALYST: 01/29/2159 [id number] [place] [address]
[~2021-01-29 05:42] MED LIST changes: +STERAPRED 5MG 65 M1 PO; +ZANAFLEX4 MG PO
[2021-01-29 06:23] LABS: CALC OSMOLALITY 270 mosm/kg (275-300); CALCIUM 9.5 mg/dL (8.5-10.1); CARBON DIOXIDE 23.1 mmol/L (21.0-32.0); CHLORIDE - SERUM 101 mmol/L (98-107); CREATININE - SERUM 0.9 mg/dL (0.6-1.3); GLUCOSE 105 mg/dL (74-106); POTASSIUM - SERUM 3.7 mmol/L (3.5-5.1); SODIUM 136 mmol/L (136-145); UREA NITROGEN 11 mg/dL (7-18); eGFR NON AFRICAN AMERICAN 78 mL/min (90-120)
[2021-01-29 06:26] LABS: BASOPHILS 0.1 % (0-2); EOSINOPHILS 3.8 % (0-7); HEMATOCRIT 45.1 % (36.0-48.0); HEMOGLOBIN 14.4 g/dL (12-16); IMMATURE GRANULOCYTES 0.8 % (0-5); LYMPHOCYTE ABS# 2.24 10x3/uL (1.18-3.74); LYMPHOCYTES 26.7 % (15-50); MCH 30.3 pg (26.0-34.0); MCHC 31.9 g/dL (31.0-37.0); MCV 94.9 fL (80.0-100.0); MEAN PLATELET VOLUME 10.2 fL (7.4-10.4); MONOCYTES 4.4 % (2-11); NEUTROPHIL ABS# 5.37 10x3/uL (1.56-6.13); NEUTROPHILS 64.2 % (40-80); PLATELET COUNT 244 10x3/uL (130-400); RBC 4.75 10x6/uL (4.00-5.40); RDW 12.9 % (11.5-14.5); WBC 8.4 10x3/uL (4.8-10.8)
[2021-01-29 07:28] VITALS: BP 117/75; Ht 157.5 cm; Wt 83.6 kg
[2021-01-29 07:37] LABS: HCG URINE NEGATIVE (NEGATIVE)
[2021-01-29] MEDS ORDERED: HYDROCODON-ACE1 EA10 PO (08:05)
--- NOTE | 2021-01-29 08:37 | NUR ---
DC INSTRUCTIONS GIVEN TO PT/FAMILY. STATE UNDERSTANDING. DC'D IV CATH FULLY INTACT. WILL CONTINUE TO MONITOR.
--- NOTE | 2021-01-29 09:01 | NUR ---
PT LEFT UNIT VIA WC AT 0899
== END 2021-01-29 08:51 | disposition home or self-care (01) ==
LOC: D.OPS 05:42
PROVIDERS: ATTEND Surgery
DX: K31.84 Gastroparesis (principal); F31.9 Bipolar disorder, unspecified; F20.9 Schizophrenia, unspecified; K43.2 Incisional hernia without obstruction or gangrene

== ENCOUNTER 2021-02-05 18:22 | Emergency (ER) | payer MEDICAID ==
[~2021-02-05] VITALS: Ht 157.5 cm; Wt 84.1 kg
[2021-02-05 18:30] VITALS: BP 127/80; Ht 157.5 cm; Wt 84.1 kg
[2021-02-05] MEDS ORDERED: TYLENOL W/CODEI1 TAB PO (18:32)
[2021-02-05] MEDS ORDERED: METHOCARBAMOL500 MG PO (18:33)
[2021-02-05] MEDS ORDERED: CYCLOBENZAPRINE10 MG PO (19:21)
== END 2021-02-05 20:02 | disposition home or self-care (01) ==
LOC: D.ER 18:22
DX: M25.552 Pain in left hip (principal); J45.909 Unspecified asthma, uncomplicated; F43.10 Post-traumatic stress disorder, unspecified; Z72.0 Tobacco use

== ENCOUNTER 2021-02-18 18:27 | Emergency (ER) | payer MEDICAID ==
[~2021-02-18] VITALS: Ht 157.5 cm; Wt 82.3 kg
[~2021-02-18 18:27] MED LIST changes: +METHOCARBAMOL500 MG PO
[2021-02-18 19:10] VITALS: Ht 157.5 cm; Wt 82.3 kg
[2021-02-18] MEDS ORDERED: SEROQUEL100 MG PO (19:13)
[2021-02-18] MEDS ORDERED: CEPHALEXIN500 M1 (19:14)
[2021-02-18 20:04] LABS: BASOPHILS 0.1 % (0-2); EOSINOPHILS 2.4 % (0-7); HEMATOCRIT 41.1 % (36.0-48.0); HEMOGLOBIN 13.5 g/dL (12-16); IMMATURE GRANULOCYTES 0.4 % (0-5); LYMPHOCYTE ABS# 1.68 10x3/uL (1.18-3.74); LYMPHOCYTES 21.3 % (15-50); MCH 29.5 pg (26.0-34.0); MCHC 32.8 g/dL (31.0-37.0); MCV 89.9 fL (80.0-100.0); MEAN PLATELET VOLUME 9.7 fL (7.4-10.4); MONOCYTES 6.1 % (2-11); NEUTROPHILS 69.7 % (40-80); RBC 4.57 10x6/uL (4.00-5.40); RDW 12.8 % (11.5-14.5); WBC 7.9 10x3/uL (4.8-10.8)
[2021-02-18 20:10] LABS: PLATELET COUNT 295 10x3/uL (130-400)
[2021-02-18 20:21] LABS: ALBUMIN 3.6 g/dL (3.4-5.0); ALKALINE PHOSPHATASE 164 U/L (30-120); ALT (SGPT) 22 U/L (10-68); CALC OSMOLALITY 276 mosm/kg (275-300); CARBON DIOXIDE 23.5 mmol/L (21.0-32.0); CHLORIDE - SERUM 104 mmol/L (98-107); CREATININE - SERUM 0.8 mg/dL (0.6-1.3); GLUCOSE 93 mg/dL (74-106); POTASSIUM - SERUM 3.6 mmol/L (3.5-5.1); PROTEIN - SERUM 7.2 g/dL (6.4-8.2); SODIUM 140 mmol/L (136-145); UREA NITROGEN 8 mg/dL (7-18); eGFR NON AFRICAN AMERICAN 89 mL/min (90-120)
[2021-02-18 21:15] LABS: BILIRUBIN NEGATIVE (NEGATIVE); KETONE NEGATIVE (NEGATIVE); NITRITE NEGATIVE (NEGATIVE); UROBILINOGEN NORMAL mg/dL (< 2)
[2021-02-18 21:18] LABS: BACTERIA MANY HPF (NONE SEEN); SQUAMOUS EPITHELIAL 0-5 HPF (0-4); WHITE CELLS - URINE 0-5 HPF (0-4)
[2021-02-18 23:33] VITALS: BP 107/66
== END 2021-02-18 22:52 | disposition home or self-care (01) ==
LOC: D.ER 18:27
PROVIDERS: Emergency Medicine
DX: R10.9 Unspecified abdominal pain (principal); N39.0 Urinary tract infection, site not specified; K94.13 Enterostomy malfunction; J45.909 Unspecified asthma, uncomplicated; Z72.0 Tobacco use

== ENCOUNTER → 2021-02-19 11:56 | Outpatient (CLI) | payer MEDICAID ==
[2021-02-18 19:10] VITALS: BMI 33.2
[~2021-02-19 11:56] MED LIST changes: +CEPHALEXIN500 M1
== END | disposition home or self-care (01) ==
LOC: D.RAD 11:56
PROVIDERS: ATTEND Surgery
DX: Z43.1 Encounter for attention to gastrostomy (principal)

== ENCOUNTER 2021-02-22 15:03 | Emergency (ER) | payer MEDICAID ==
[~2021-02-22] VITALS: Ht 157.5 cm; Wt 82.3 kg
[2021-02-22 15:24] VITALS: BP 112/74; Ht 157.5 cm; Wt 82.3 kg
[2021-02-22 15:50] LABS: BASOPHILS 0.3 % (0-2); EOSINOPHILS 2.9 % (0-7); HEMATOCRIT 43.5 % (36.0-48.0); HEMOGLOBIN 14.3 g/dL (12-16); IMMATURE GRANULOCYTES 0.5 % (0-5); LYMPHOCYTE ABS# 2.19 10x3/uL (1.18-3.74); LYMPHOCYTES 28.7 % (15-50); MCH 29.7 pg (26.0-34.0); MCHC 32.9 g/dL (31.0-37.0); MCV 90.2 fL (80.0-100.0); MEAN PLATELET VOLUME 9.8 fL (7.4-10.4); NEUTROPHIL ABS# 4.77 10x3/uL (1.56-6.13); NEUTROPHILS 62.6 % (40-80); PLATELET COUNT 281 10x3/uL (130-400); RBC 4.82 10x6/uL (4.00-5.40); RDW 12.5 % (11.5-14.5); WBC 7.6 10x3/uL (4.8-10.8)
== END 2021-02-22 16:30 | disposition home or self-care (01) ==
LOC: D.ER 15:03
PROVIDERS: Family Medicine
DX: T85.9XXA Unspecified complication of internal prosthetic device, implant and graft, initial encounter (principal); J45.909 Unspecified asthma, uncomplicated; E03.9 Hypothyroidism, unspecified; Z72.0 Tobacco use

== ENCOUNTER 2021-02-26 20:04 | Emergency (ER) | payer MEDICAID ==
[~2021-02-26] VITALS: Ht 157.5 cm; Wt 82.3 kg
[2021-02-26 20:10] VITALS: BP 129/81; Ht 157.5 cm; Wt 82.3 kg
== END 2021-02-26 23:17 | disposition home or self-care (01) ==
LOC: D.ER 20:04
DX: T85.848A Pain due to other internal prosthetic devices, implants and grafts, initial encounter (principal); E03.9 Hypothyroidism, unspecified

== ENCOUNTER 2021-04-02 17:13 | Emergency (ER) | payer MEDICAID ==
[~2021-04-02] VITALS: Ht 157.5 cm; Wt 81.8 kg
[2021-04-02 17:18] VITALS: BP 116/74; Ht 157.5 cm; Wt 81.8 kg
== END 2021-04-02 17:53 | disposition home or self-care (01) ==
LOC: D.ER 17:13
DX: K94.23 Gastrostomy malfunction (principal); J45.909 Unspecified asthma, uncomplicated; Z72.0 Tobacco use

== ENCOUNTER 2021-04-05 11:47 | Emergency (ER) | payer MEDICAID ==
[~2021-04-05] VITALS: Ht 157.5 cm; Wt 81.8 kg
[2021-04-05 11:50] VITALS: BP 110/71; Ht 157.5 cm; Wt 81.8 kg
== END 2021-04-06 06:34 | disposition home or self-care (01) ==
LOC: D.ER 11:47
DX: K94.13 Enterostomy malfunction (principal)

== ENCOUNTER 2021-04-05 20:13 | Emergency (ER) | payer MEDICAID ==
[~2021-04-05] VITALS: Ht 157.5 cm; Wt 81.6 kg
[2021-04-05 20:24] VITALS: Ht 157.5 cm; Wt 81.6 kg
[2021-04-05 22:45] LABS: BASOPHILS 0.1 % (0-2); EOSINOPHILS 3.8 % (0-7); HEMATOCRIT 46.8 % (36.0-48.0); HEMOGLOBIN 15.7 g/dL (12-16); IMMATURE GRANULOCYTES 0.3 % (0-5); LYMPHOCYTE ABS# 1.54 10x3/uL (1.18-3.74); LYMPHOCYTES 20.8 % (15-50); MCH 28.5 pg (26.0-34.0); MCHC 33.5 g/dL (31.0-37.0); MCV 85.1 fL (80.0-100.0); MEAN PLATELET VOLUME 10.4 fL (7.4-10.4); MONOCYTES 3.7 % (2-11); NEUTROPHIL ABS# 5.27 10x3/uL (1.56-6.13); NEUTROPHILS 71.3 % (40-80); PLATELET COUNT 250 10x3/uL (130-400); RDW 13.2 % (11.5-14.5); WBC 7.4 10x3/uL (4.8-10.8)
[2021-04-05 23:03] LABS: ALKALINE PHOSPHATASE 215 U/L (30-120); ALT (SGPT) 64 U/L (10-68); CALC OSMOLALITY 272 mosm/kg (275-300); CALCIUM 9.2 mg/dL (8.5-10.1); CHLORIDE - SERUM 101 mmol/L (98-107); CREATININE - SERUM 0.9 mg/dL (0.6-1.3); GLUCOSE 83 mg/dL (74-106); POTASSIUM - SERUM 3.5 mmol/L (3.5-5.1); PROTEIN - SERUM 8.1 g/dL (6.4-8.2); SODIUM 138 mmol/L (136-145); UREA NITROGEN 8 mg/dL (7-18); eGFR NON AFRICAN AMERICAN 78 mL/min (90-120)
[2021-04-05 23:36] VITALS: BP 140/85
[2021-04-05 23:51] LABS: ALBUMIN 4.7 g/dL (3.4-5.0); CARBON DIOXIDE 17.5 mmol/L (21.0-32.0)
== END 2021-04-05 23:37 | disposition home or self-care (01) ==
LOC: D.ER 20:13
PROVIDERS: Family Medicine
DX: K94.13 Enterostomy malfunction (principal)

== ENCOUNTER → 2021-04-07 12:31 | Outpatient (CLI) | payer MEDICAID ==
[2021-04-05 20:24] VITALS: BMI 33.0
[2021-04-07 13:01] LABS: BASOPHILS 0.2 % (0-2); EOSINOPHILS 0.8 % (0-7); HEMATOCRIT 47.1 % (36.0-48.0); HEMOGLOBIN 15.6 g/dL (12-16); LYMPHOCYTES 14.5 % (15-50); MCH 28.2 pg (26.0-34.0); MCHC 33.2 g/dL (31.0-37.0); MCV 85.2 fL (80.0-100.0); MEAN PLATELET VOLUME 7.9 fL (7.4-10.4); MONOCYTES 3.9 % (2-11); NEUTROPHILS 80.6 % (40-80); PLATELET COUNT 329 10x3/uL (130-400); RBC 5.53 10x6/uL (4.00-5.40); RDW 13.8 % (11.5-14.5); WBC 11.4 10x3/uL (4.8-10.8)
[2021-04-07 13:14] LABS: ALKALINE PHOSPHATASE 177 U/L (30-120); ALT (SGPT) 43 U/L (10-68); BILIRUBIN - TOTAL 0.79 mg/dL (0.2-1.3); CALC OSMOLALITY 271 mosm/kg (275-300); CALCIUM 9.4 mg/dL (8.5-10.1); CARBON DIOXIDE 19.8 mmol/L (21.0-32.0); CHLORIDE - SERUM 102 mmol/L (98-107); CREATININE - SERUM 0.8 mg/dL (0.6-1.3); GLUCOSE 124 mg/dL (74-106); LIPASE 72 U/L (73-393); POTASSIUM - SERUM 3.1 mmol/L (3.5-5.1); PROTEIN - SERUM 8.4 g/dL (6.4-8.2); SODIUM 136 mmol/L (136-145); UREA NITROGEN 9 mg/dL (7-18); eGFR NON AFRICAN AMERICAN 89 mL/min (90-120)
== END | disposition home or self-care (01) ==
LOC: D.CT 12:30
PROVIDERS: ATTEND Nurse Practitioner
DX: R10.12 Left upper quadrant pain (principal); R11.2 Nausea with vomiting, unspecified